=== PATIENT | male | born 1975 | race Caucasian/White ===

== ENCOUNTER 2021-04-10 10:56 | Inpatient (IN) | payer BC ==
--- NOTE | 2021-04-10 11:00 | EDM.PDOC ---
ED HPI GENERAL MEDICAL PROBLEM - General Chief Complaint: Cardiovascular Problem Stated Complaint: [id number] FROM CLINIC Time Seen by Provider: 04/10/21 10:59 Source of Information: Reports: Patient, Provider (Dr. Olson), RN, RN Notes Reviewed History Limitations: Reports: No Limitations - History of Present Illness INITIAL COMMENTS - FREE TEXT/NARRATIVE: Pt sent from [facility] by Dr. Olson where he presented as a new patient with c/o onset of sharp right sided chest pain yesterday afternoon (04/09/21) while mowing his lawn. Since the onset of chest pain the pt reports constant mild shortness of breath. Today the pain began to ache into RUQ abdomen as well. He states the he "does not feel right in general". Denies fever, chills, cough, wheezing, leg/calf pain, syncope, lightheadedness, or recent injury. Denies Hx of CAD/CT, DVT/PE, or recent illness. Onset: Gradual Onset Date: 04/09/21 Duration: Constant, Getting Worse Location: Reports: Chest, Generalized Quality: Reports: Ache, Pressure, Sharp Severity: Moderate Improves with: Reports: None Worsens with: Reports: Other (Activity) right upper quadrant Pain Score (Numeric/FACES): 3 - Related Data Allergies Allergy/AdvReac Type Severity Reaction Status Date / Time No Known Allergies Allergy Verified 04/10/21 11:16 Home Meds: Home Meds Escitalopram Oxalate [Lexapro] 20 mg PO DAILY 04/10/21 [History] Multivitamin/Iron/Folic Acid [Centrum Adults Tablet] 1 tab PO DAILY 04/10/21 [History] metFORMIN [Glucophage] 500 mg PO BIDMEALS 04/10/21 [History] Past Medical History Gastrointestinal History: Reports: GERD Endocrine/Metabolic History: Reports: Diabetes, Type II, Obesity/BMI 30+ Social & Family History - Family History Family Medical History: No Pertinent Family History - Tobacco Use Tobacco Use Status *Q: Never Tobacco User - Recreational Drug Use Recreational Drug Use: Yes Drug Use in Last 12 Months: Yes Recreational Drug Type: Reports: Marijuana/Hashish Recreational Drug Use Frequency: Daily - Living Situation & Occupation Occupation: Employed ED ROS GENERAL - Review of Systems Review Of Systems: Comprehensive ROS is negative, except as noted in HPI. ED EXAM, GENERAL - Physical Exam Exam: See Below Exam Limited By: No Limitations General Appearance: Alert, WD/WN, No Apparent Distress, Obese Eye Exam: Bilateral Eye: EOMI, Normal Inspection, PERRL Ears: Normal External Exam, Normal Canal, Hearing Grossly Normal, Normal TMs Nose: Normal Inspection, Normal Mucosa, No Blood Throat/Mouth: Normal Inspection, Normal Lips, Normal Teeth, Normal Gums, Normal Oropharynx, Normal Voice, No Airway Compromise Head: Atraumatic, Normocephalic Neck: Normal Inspection, Supple, Non-Tender, Full Range of Motion Respiratory/Chest: No Respiratory Distress, Lungs Clear, Normal Breath Sounds, No Accessory Muscle Use, Chest Non-Tender Cardiovascular: Normal Peripheral Pulses, Regular Rate, Rhythm, No Edema, No Gallop, No JVD, No Murmur, No Rub Peripheral Pulses: 1+: Radial (L), Radial (R) GI/Abdominal: Normal Bowel Sounds, Soft, Tender (RUQ), Other (positive murphys sign). No: Guarding, Rigid, Rebound (Male) Exam: Deferred Rectal (Males) Exam: Deferred Back Exam: Normal Inspection, Full Range of Motion. No: CVA Tenderness (L), CVA Tenderness (R), Vertebral Tenderness Extremities: Normal Inspection, Normal Range of Motion, Non-Tender, No Pedal Edema, Normal Capillary Refill. No: Joint Swelling, Arm Pain, Karen's Sign, Leg Pain, Increased Warmth, Redness Neurological: Alert, Oriented, CN II-XII Intact, Normal Cognition, Normal Gait, No Motor/Sensory Deficits Psychiatric: Normal Affect, Normal Mood Skin Exam: Warm, Dry, Intact, Normal Color, No Rash Lymphatic: No Adenopathy #1 Interpretation EKG Date: 04/10/21 Time: 11:07 Rhythm: NSR [place]: Normal P-Wave: Present QRS: Normal ST-T: Normal QT: Normal Comparison: NA - No Prior EKG EKG Interpretation Comments: Sinus rhythm rate of 98, normal axis, normal r wave progression, no ectopy or st changes. Course - Vital Signs Last Recorded V/S: Last Vital Signs Temp 99.0 F 04/10/21 11:09 Pulse 95 04/10/21 11:09 Resp 20 04/10/21 11:09 BP 133/83 04/10/21 11:09 Pulse Ox 99 04/10/21 11:09 - Orders/Labs/Meds Orders: Active Orders 24 hr Category Date Time Status Admission Diagnosis [ADT] Routine ADT 04/10/21 13:21 Ordered Patient Status [ADT] Routine ADT 04/10/21 13:21 Active EKG 12 Lead [EKG Documentation Completion] [RC] STAT Care 04/10/21 11:00 Active Peripheral IV Care [RC] . DIRECTED Care 04/10/21 11:01 Active CORONAVIRUS COVID-19 WAYNE [MOLEC] Stat Lab 04/10/21 13:19 Received Heparin Sodium/0.45% NaCl [Heparin 25,000 Units in 1/2 Med 04/10/21 13:15 Active NS 500 ML] 25,000 units in 500 ml IV TITRATE Sodium Chloride 0.9% [Saline Flush] Med 04/10/21 11:01 Active 10 ml FLUSH ASDIRECTED PRN Peripheral IV Insertion Adult [OM.PC] Stat Oth 04/10/21 11:00 Ordered Medication Orders Heparin Sodium/Sodium Chloride (Heparin 25,000 Units In 1/2 Ns 500 Ml) 25,000 units in 500 mls @ 26 mls/hr IV TITRATE MARCELL; Protocol Sodium Chloride (Sodium Chloride 0.9% 10 Ml Syringe) 10 ml FLUSH ASDIRECTED PRN PRN Reason: Keep Vein Open Last Admin: 04/10/21 11:05 Dose: 10 ml Documented by: SHANDA Labs: Laboratory Tests 04/10/21 04/10/21 04/10/21 Range/Units 11:00 11:05 11:05 WBC 13.5 H (5.0-10.0) 10^3/uL RBC 5.02 (4.6-6.2) 10^6/uL Hgb 15.5 (14.0-18.0) g/dL Hct 44.9 (40.0-54.0) % MCV 89.4 (80-100) fL MCH 30.9 (27.0-34.0) pg MCHC 34.5 (33.0-35.0) g/dL Plt Count 208 (150-450) 10^3/uL Neut % (Auto) 75.9 H (42.2-75.2) % Lymph % (Auto) 13.6 L (20.5-50.1) % Cabell % (Auto) 9.6 H (2-8) % Eos % (Auto) 0.6 L (1.0-3.0) % Baso % (Auto) 0.3 (0.0-1.0) % PT 10.7 (9.0-12.0) SEC INR 1.1 (0.9-1.2) APTT 26.5 (22.0-34.0) SEC D-Dimer, Quantitative 2990 H (0-400) ng/mL Sodium 139 (136-145) mmol/L Potassium 3.7 (3.5-5.1) mmol/L Chloride 102 (98-107) mmol/L Carbon Dioxide 28 (21-32) mmol/L Anion Gap 12.7 (7-13) mEq/L BUN 14 (7-18) mg/dL Creatinine 1.07 (0.70-1.30) mg/dL Est Cr Clr Drug Dosing 89.07 mL/min Estimated GFR (MDRD) > 60 BUN/Creatinine Ratio 13.1 (No establ ref range) Glucose 109 H (70-99) mg/dL Calcium 8.7 (8.5-10.1) mg/dL Magnesium 2.2 (1.8-2.4) mg/dL Total Bilirubin 1.2 H (0.2-1.0) mg/dL AST 12 L (15-37) U/L ALT 31 (16-63) U/L Alkaline Phosphatase 70 (46-116) U/L Troponin I High Sens 4 (<=76) pg/mL B-Natriuretic Peptide 8 (0-100) pg/ml Total Protein 7.6 (6.4-8.2) g/dL Albumin 3.8 (3.4-5.0) g/dL Globulin 3.8 Albumin/Globulin Ratio 1.0 TSH, Ultra Sensitive 2.29 (0.36-3.74) uIU/mL Meds: Medications Generic Name Dose Route Start Last Admin Trade Name Freq PRN Reason Stop Dose Admin Heparin Sodium/Sodium Chloride 25,000 units in 500 mls @ 26 mls/hr 04/10/21 13:15 Heparin 25,000 Units In 1/2 Ns 500 Ml IV TITRATE MARCELL Protocol Sodium Chloride 10 ml 04/10/21 11:01 04/10/21 11:05 Sodium Chloride 0.9% 10 Ml Syringe FLUSH 10 ml ASDIRECTED PRN Administration Keep Vein Open Discontinued Medications Generic Name Dose Route Start Last Admin Trade Name Elmer PRN Reason Stop Dose Admin Aspirin 324 mg 04/10/21 11:02 04/10/21 11:43 Aspirin 81 Mg Tab.Chew PO 04/10/21 11:03 324 mg ONETIME ONE Administration Heparin Sodium (Porcine) 5,000 units 04/10/21 13:13 Heparin Sodium 5,000 Units/Ml Vial IVPUSH 04/10/21 13:14 .BOLUS ONE Protocol Iopamidol 100 ml 04/10/21 12:05 04/10/21 12:29 Iopamidol 755 Mg/Ml 100 Ml Bottle IVPUSH 04/10/21 12:06 83 ml ONETIME ONE Administration - Radiology Interpretation Free Text/Narrative:: [facility] Final Radiology Report Call: [phone] assistance Online chat: [email or web address] Name: ALKA ALFONSO Age: 45Years M Date: 04/10/2021 SSN: -- : [id number] Study: CT CHEST W CONT Requesting Physician: TORI WATKINS Images: [id number] Addl Studies: Provided Clinical History: Rt chest pain, short of breath D-dimer 2990 Contrast: With Contrast Medium: Isovue 370 Contrast Amount: 83 mL Contrast Method: Intravenous (IV) Page 1 of 2 PROCEDURE INFORMATION: Exam: CT Chest With Contrast; Diagnostic Exam date and time: 04/10/2021 12:22 PM Age: 45 years old Clinical indication: Shortness of breath; Additional info: RT chest pain, short of breath d-dimer 2990 TECHNIQUE: Imaging protocol: Diagnostic computed tomography of the chest with contrast. Radiation optimization: All CT scans at this facility use at least one of these dose optimization techniques: automated exposure control; mA and/or kV adjustment per patient size (includes targeted exams where dose is matched to clinical indication); or iterative reconstruction. Contrast material: ISOVUE 370; Contrast volume: 83 ml; Contrast route: INTRAVENOUS (IV); COMPARISON: No relevant prior studies available. FINDINGS: Limitations: None. Trachea: Normal. Bronchial tree: Normal. Lungs: Bilateral lower lobe peribronchial thickening is mild to the left and [id number] to the right. Ground-glass opacification across the left lung base, some of it likely attributable to atelectasis but the extent and nature of the opacification also suggests other superimposed disease. Incidentally noted calcified right upper lobe micro-granuloma, not concerning. Pleural spaces: Small right pleural effusion. Heart: The heart has normal dimensions and there is no pericardial effusion. The RV to LV ratio is about 0.83. Coronary arteries: Normal. ALKA ALFONSO | Final Radiology Report CONFIDENTIALITY STATEMENT This report is intended only for use by the referring physician, and only in accordance with law. If you received this in error, call [phone]. Page 2 of 2 Pulmonary arteries: There are filling defects within multiple pulmonary arteries. To the left these include nonocclusive filling defects at the origins of lobar branches to the lingula, within the common lower lobe branch and with saddle emboli extending into segmental branches, similar to that seen to the right where there is nonocclusive defect at the interlobar artery division to middle lobe and lower lobe arteries, also with smaller defects extending into segmental branches. A right lower lobe subsegmental branch appears completely occluded. Aorta: Normal. Lymph nodes: There are a few enlarged right paratracheal lymph nodes that measure up to 0.8 cm. No enlarged axillary or hilar lymph nodes. Stomach and bowel: Small gastric hiatal hernia. Bones/joints: No acute fracture or suspicious osseous lesion. Soft tissues: Normal. IMPRESSION: 1. Multiple bilateral pulmonary emboli. No evidence of right heart strain. The clot burden is at least moderate given its diffuse distribution and there is likely a sub segmental infarct in the posterior right lung base. 2. Findings in the right lower lung including the small pleural effusion and ground-glass opacification may be related to lung infarct, and or, superimposed infection given the presence of right greater than left peribronchial thickening and enlarged mediastinal lymph nodes. Follow-up of the enlarged lymph nodes is recommended after treatment and when well. THIS REPORT CONTAINS FINDINGS THAT MAY BE CRITICAL TO PATIENT CARE. The findings were verbally communicated via telephone conference with TORI WATKINS at 1:05 PM CDT on 04/10/2021. The findings were acknowledged and understood. Thank you for allowing us to participate in the care of your patient. Dictated and Authenticated by: Ryan Villareal MD 04/10/2021 1:08 PM Central Time ([place] & [place]) Departure - Departure Time of Disposition: 13:39 (admitted to Dr. Marcos) Disposition: Admitted As Inpatient 65 Condition: Fair, Serious Clinical Impression: Bilateral pulmonary embolism Forms: ED Department Discharge Sepsis Event Note (ED) - Focused Exam Vital Signs: Vital Signs Temp Pulse Resp BP Pulse Ox 04/10/21 11:09 99.0 F 95 20 133/83 99 - My Orders Last 24 Hours: My Active Orders 04/10/21 11:00 EKG 12 Lead [EKG Documentation Completion] [RC] STAT Peripheral IV Insertion Adult [OM.PC] Stat 04/10/21 11:01 Peripheral IV Care [RC] . DIRECTED Sodium Chloride 0.9% [Saline Flush] 10 ml FLUSH ASDIRECTED PRN 04/10/21 13:15 Heparin Sodium/0.45% NaCl [Heparin 25,000 Units in 1/2 NS 500 ML] 25,000 units in 500 ml IV TITRATE 04/10/21 13:19 CORONAVIRUS COVID-19 WAYNE [MOLEC] Stat 04/10/21 13:21 Admission Diagnosis [ADT] Routine Patient Status [ADT] Routine - Assessment/Plan Last 24 Hours: My Active Orders 04/10/21 11:00 EKG 12 Lead [EKG Documentation Completion] [RC] STAT Peripheral IV Insertion Adult [OM.PC] Stat 04/10/21 11:01 Peripheral IV Care [RC] . DIRECTED Sodium Chloride 0.9% [Saline Flush] 10 ml FLUSH ASDIRECTED PRN 04/10/21 13:15 Heparin Sodium/0.45% NaCl [Heparin 25,000 Units in 1/2 NS 500 ML] 25,000 units in 500 ml IV TITRATE 04/10/21 13:19 CORONAVIRUS COVID-19 WAYNE [MOLEC] Stat 04/10/21 13:21 Admission Diagnosis [ADT] Routine Patient Status [ADT] Routine
[2021-04-10] MEDS ORDERED: Aspirin 81 MG Tab.Chew PO ONE (11:02)
[2021-04-10] MEDS: Sodium Chloride 0.9% 10 ML Syringe FLUSH PRN ×4 (11:05→22:32)
[2021-04-10 11:34] LABS: PTT,PARTIAL THROMBOPLSTIN TIME 26.5 SEC (22.0-34.0)
[2021-04-10 11:41] LABS: ANION GAP 12.7 mEq/L (7-13); CHLORIDE,CL 102 mmol/L (98-107); SODIUM,NA 139 mmol/L (136-145)
[2021-04-10] MEDS ORDERED: Iopamidol 755 Mg/ML 100 ML Bottle IVPUSH ONE (12:05)
--- NOTE | 2021-04-10 13:08 | CT ---
PROCEDURE INFORMATION: Exam: CT Chest With Contrast; Diagnostic Exam date and time: 04/10/2021 12:22 PM Age: 45 years old Clinical indication: Shortness of breath; Additional info: RT chest pain, short of breath d-dimer 2990 TECHNIQUE: Imaging protocol: Diagnostic computed tomography of the chest with contrast. Radiation optimization: All CT scans at this facility use at least one of these dose optimization techniques: automated exposure control; mA and/or kV adjustment per patient size (includes targeted exams where dose is matched to clinical indication); or iterative reconstruction. Contrast material: ISOVUE 370; Contrast volume: 83 ml; Contrast route: INTRAVENOUS (IV); COMPARISON: No relevant prior studies available. FINDINGS: Limitations: None. Trachea: Normal. Bronchial tree: Normal. Lungs: Bilateral lower lobe peribronchial thickening is mild to the left and [id number] to the right. Ground-glass opacification across the left lung base, some of it likely attributable to atelectasis but the extent and nature of the opacification also suggests other superimposed disease. Incidentally noted calcified right upper lobe micro-granuloma, not concerning. Pleural spaces: Small right pleural effusion. Heart: The heart has normal dimensions and there is no pericardial effusion. The RV to LV ratio is about 0.83. Coronary arteries: Normal. Pulmonary arteries: There are filling defects within multiple pulmonary arteries. To the left these include nonocclusive filling defects at the origins of lobar branches to the lingula, within the common lower lobe branch and with saddle emboli extending into segmental branches, similar to that seen to the right where there is nonocclusive defect at the interlobar artery division to middle lobe and lower lobe arteries, also with smaller defects extending into segmental branches. A right lower lobe subsegmental branch appears completely occluded. Aorta: Normal. Lymph nodes: There are a few enlarged right paratracheal lymph nodes that measure up to 0.8 cm. No enlarged axillary or hilar lymph nodes. Stomach and bowel: Small gastric hiatal hernia. Bones/joints: No acute fracture or suspicious osseous lesion. Soft tissues: Normal. IMPRESSION: 1. Multiple bilateral pulmonary emboli. No evidence of right heart strain. The clot burden is at least moderate given its diffuse distribution and there is likely a sub segmental infarct in the posterior right lung base. 2. Findings in the right lower lung including the small pleural effusion and ground-glass opacification may be related to lung infarct, and or, superimposed infection given the presence of right greater than left peribronchial thickening and enlarged mediastinal lymph nodes. Follow-up of the enlarged lymph nodes is recommended after treatment and when well. THIS REPORT CONTAINS FINDINGS THAT MAY BE CRITICAL TO PATIENT CARE. The findings were verbally communicated via telephone conference with TORI WATKINS at 1:05 PM CDT on 04/10/2021. The findings were acknowledged and understood.
[2021-04-10] MEDS ORDERED: Heparin Sodium 5,000 Units/ML Vial IVPUSH ONE ×3 (13:13→21:05)
[2021-04-10] MEDS: Heparin Sodium/0.45% NaCl 25,000 UNITS/500 ML BAG IV SCH (13:45)
[2021-04-10] MEDS ORDERED: Acetaminophen 325 MG Tab PO PRN (14:06)
[2021-04-10] MEDS ORDERED: Ondansetron 4 MG/2 ML SDV IVPUSH PRN (14:06)
[2021-04-10] MEDS ORDERED: 50% Dextrose in Water 50 ML Syringe IVPUSH PRN (14:10)
[2021-04-10] MEDS ORDERED: Glucagon,Human Recombinant 1 MG Vial IM PRN (14:10)
--- NOTE | 2021-04-10 14:19 | PCM.SN.2 ---
- Free Text/Narrative Note: START OF DOCTOR FRANCES HISTORY AND PHYSICAL / CONSULTATION NOTE Chief Complaint: "I was sent to the emergency department because of suspected blood clot" History of Present Illness: The patient is a 45 old male who directed to the emergency department by a physician with the suspicion for venous thrombosis. The patient states he started feeling unwell on April 09, 2021 after mowing his lawn with a push mower. He noted dyspnea on exertion which was normal for him. HE SUBSEQUENTLY DEVELOPED PROGRESSIVE DYSPNEA AT REST. THE PATIENT DENIES FEVER, RIGORS, NAUSEA, VOMITING, COUGH, WHEEZE, ABDOMINAL PAIN, DIARRHEA, MYALGIA, CHEST PAIN, LIGHTHEADEDNESS, DIZZINESS, DIAPHORESIS, PALPITATIONS, SINCE HIS RAPID HEART BEAT, SENSATION OF AN IRREGULAR HEARTBEAT. HE COMPLAINS OF MILD RIGHT UPPER QUADRANT DISCOMFORT. HE DENIES PERIPHERAL EDEMA. HE DENIES DYSGEUSIA AND HE DENIES ANOSMIA. PATIENT HAS A 7-PACK-YEAR HISTORY OF SMOKING WHICH IS REMOTE. HE DENIES ANY RECENT LONG TRAVELS. HE DENIES HEMATOCHEZIA, MELENA, CHANGE IN STOOL CALIBER. HE PRESENTS FOR FURTHER EVALUATION Surgical History: Tonsillectomy Family History: Cancer, coronary artery disease Social History: Tobacco: Former smoker Alcohol: The patient drinks to 7 beers nightly but denies a history of alcohol withdrawal Caffeine: Coffee Drugs: Presently uses marijuana. Denies any other drug use past or present Allergies: No known drug allergies Code Status: Full Pertinent Laboratory Results / Pertinent Radiology Results / Pertinent Diagnostic Results / Pertinent Vital Signs: Blood pressure 133/83, pulse 95, respiration 20, 190 degrees, 90% room air, bilirubin is 1.2, D-dimer 2990, white blood count 13.5 Physical Examination: General: -Alert -No acute distress -No dyspnea -No tachypnea -Obese Head: -Atraumatic -Normocephalic Eyes: -Pupils equally round and reactive to light and accommodation -Extraocular muscles intact Neurological: -Cranial nerves II-XII intact Neck: -No jugular venous distention -No thyromegaly -No cervical lymphadenopathy Heart: -Regular rate -Regular rhythm -No murmurs -No gallops -No rubs Lungs: -No wheeze -No rhonchi -No rales Abdomen: -Normal bowel sounds in all four quadrants -No rebound -No guarding -No tenderness Extremities: -2/4 pulse in all four extremities -No clubbing -No cyanosis -No edema -No calf tenderness present bilaterally -Negative Homans sign bilaterally Musculoskeletal: -5/5 bilateral upper extremity strength -5/5 bilateral lower extremity strength -Sensorium of bilateral upper extremities are equal and intact -Sensorium of bilateral lower extremities are equal and intact Additional Details / Additional Findings / Exceptions / Miscellaneous: Assessment / Plan: Pulmonary embolism. Will monitor patient telemetry and check saccadic enzymes. Check protein C activity, protein S activity, factor V Leiden, anticardiolipin antibody. IV heparin drip per protocol. Upon discharge patient will require CT abdomen pelvis with IV contrast as well as colonoscopy to rule out any malignancy especially since he is of age of screening Mediastinal lymphadenopathy. This may be sequelae of questionable pneumonia. CT chest with IV contrast 2 months post discharge to ensure resolution Depression Query pneumonia. Azithromycin 500 mg IV daily plus Rocephin 1 g IV daily Marijuana abuse. Patient will be counseled regarding marijuana cessation Hyperbilirubinemia. Will monitor bilirubin levels intermittently Diabetes. Will check fasting glucose before every meal and at bedtime and provide insulin sliding scale Obesity. Patient counseled regarding lifestyle modification Alcohol overuse/abuse. Patient denies history of withdrawal DVT prophylaxis. IV heparin drip per protocol Disposition: Anticipate discharge within 24 hours END OF DOCTOR EMAMIS HISTORY AND PHYSICAL / CONSULTATION NOTE
[2021-04-10] MEDS ORDERED: Azithromycin 500 MG in Sodium Chloride 0.9% 250 ML IV SCH (15:00)
[2021-04-10] MEDS ORDERED: cefTRIAXone 1 GM in Sodium Chloride 0.9% 50 ML IV SCH (16:00)
[2021-04-10] MEDS: Insulin Lispro 100 Units/ML 3 ML Vial SUBCUT SCH ×2 (17:05→21:28)
[2021-04-10] MEDS: Morphine 2 MG/ML SYRINGE IVPUSH PRN ×2 (18:39→22:31)
[2021-04-11] MEDS: Morphine 2 MG/ML SYRINGE IVPUSH PRN ×3 (01:04→09:29)
[2021-04-11] MEDS: Sodium Chloride 0.9% 10 ML Syringe FLUSH PRN ×2 (01:04→05:05)
[2021-04-11] MEDS ORDERED: Heparin Sodium 5,000 Units/ML Vial IVPUSH ONE (04:17)
[2021-04-11] MEDS: Heparin Sodium/0.45% NaCl 25,000 UNITS/500 ML BAG IV SCH (07:42)
--- NOTE | 2021-04-11 07:44 | PCM.SN.2 ---
- Free Text/Narrative Note: START OF DOCTOR EMAMIS DISCHARGE SUMMARY Date of Admission: April 10, 2021 Date of Discharge: 7:41 AM on April 11, 2021 Primary Diagnosis: Pulmonary embolism Secondary Diagnosis: Mediastinal lymphadenopathy, this may potentially be a sequelae of questionable pneumonia Query pneumonia Depression Marijuana abuse Hyperbilirubinemia Diabetes Obesity Alcohol overuse/abuse Anemia Obstructive sleep apnea Consultations: None Condition on Discharge: Fair Disposition: The patient will be vies to follow-up with hematology/oncology 7 to 14 days post discharge for diagnosis of pulmonary embolism The patient is advised follow-up with gastroenterology 2 to 4 weeks post discharge for evaluation for age-appropriate screening colonoscopy, especially given his recent diagnosis of pulmonary embolism (rule out malignancy ( The patient will require check of CT chest abdomen and pelvis with IV contrast 2 months post discharge for diagnosis of mediastinal lymphadenopathy as well as pulmonary embolism (rule out malignancy ( Discharge Medications: Lisinopril 5 mg p.o. daily: This is being prescribed for nephro protection by virtue of his diabetes and is not being prescribed for hypertension Doxycycline 100 mg p.o. twice daily. Quantity 12. 0 refills Muddy 5/325 mg p.o. every 6 hours as needed pain. Quantity 10. 0 refills Metformin 500 mg p.o. twice daily Lexapro 20 mg p.o. daily Multivitamin 1 tab p.o. daily Eliquis 5 mg p.o.: 2 tabs p.o. twice daily for 7 days then 1 tab p.o. twice daily indefinitely thereafter until discontinuation. Quantity sufficient for 1 month. 0 refills END OF DOCTOR EMAMIS DISCHARGE SUMMARY
[2021-04-11] MEDS ORDERED: Apixaban 5 MG Tab PO ONE (08:00)
[2021-04-11] MEDS ORDERED: metFORMIN 500 MG Tab PO SCH (08:00)
[2021-04-11] MEDS ORDERED: Escitalopram 10 MG Tab PO SCH (09:00)
[2021-04-11] MEDS: Insulin Lispro 100 Units/ML 3 ML Vial SUBCUT SCH ×2 (09:28→12:46)
== END 2021-04-11 13:02 | disposition home or self-care (01) | DRG 134 ==
LOC: DL.ED 10:56 → DL.MS 13:21
PROVIDERS: ADMIT Internal Medicine; ATTEND Internal Medicine
DX: I26.99 Other pulmonary embolism without acute cor pulmonale (principal); R59.1 Generalized enlarged lymph nodes; F32.9 Major depressive disorder, single episode, unspecified; F12.10 Cannabis abuse, uncomplicated; E80.6 Other disorders of bilirubin metabolism; E11.9 Type 2 diabetes mellitus without complications; E66.9 Obesity, unspecified; D64.9 Anemia, unspecified; G47.33 Obstructive sleep apnea (adult) (pediatric); Z90.89 Acquired absence of other organs; Z87.891 Personal history of nicotine dependence; Z79.899 Other long term (current) drug therapy; K21.9 Gastro-esophageal reflux disease without esophagitis; Z20.822 Contact with and (suspected) exposure to COVID-19; Z68.43 Body mass index [BMI] 50.0-59.9, adult
CPT/HCPCS: 36415; 71260; 80053; 81241; 82728; 82947; 83540; 83550; 83735; 83880; 84443; 84484; 85025; 85302; 85303; 85306; 85379; 85610; 85730; 86147; 93005; 99285-25; A9270-GY; J0456; J0696; J1644; J2270; J7050; Q9967; U0002

== ENCOUNTER 2021-08-09 05:28 | Day surgery (SDC) | payer BC ==
[2021-08-09] MEDS ORDERED: Midazolam 1 MG/ML 2 ML SDV IV ONE ×6 (05:29→06:50)
[2021-08-09] MEDS ORDERED: fentaNYL 100 MCG/2 ML SDV IV ONE ×3 (05:29→06:41)
[2021-08-09] MEDS ORDERED: fentaNYL 100 MCG/2 ML SDV ONE (05:38)
[2021-08-09] MEDS ORDERED: Midazolam 1 MG/ML 2 ML SDV ONE (05:38)
[2021-08-09] MEDS ORDERED: Dextrose 5%-0.45% NaCl 1,000 ML IV SCH (06:00)
[2021-08-09] MEDS ORDERED: Sodium Chloride 0.9% 10 ML Syringe FLUSH PRN (06:00)
--- NOTE | 2021-08-09 07:33 | OR ---
DATE: 08/09/2021 PROCEDURE: Total colonoscopy. INSTRUMENT USED: [id number] Olympus video colonoscope. PREMEDICATIONS: Fentanyl 100 mcg intravenous, Versed 3.5 mg intravenous, nasal O2 cannula. The procedure was done under pulse oximetry, BP recording, and monitor technician. INDICATION: Screening colonoscopic examination is done for detection of any polypoid lesions and removal, endoscopic hemostasis therapy if needed. DESCRIPTION OF PROCEDURE: Initial rectal exam was unremarkable. Rigid anoscopy showed small internal hemorrhoids without bleeding from them. The colonoscope was passed with ease up to the ileocecal area. Photographs were taken of the normal-appearing cecum identified by landmarks of appendiceal orifice and double bulged ileocecal folds. No bleeding was noted from any of the visualized areas at the commencement of the examination. The bowel preparation was found to be adequate, [place] scale 3 in all the areas. Total score 9. No stricture. No vascular ectasia. No large isolated ulcerations seen. No evidence of diffuse inflammatory bowel disease in the form of friability, contact bleeding, or ulcerations. No polyp or tumor mass identified. Second-look of the right colon made and no polypoid lesions noted. Probing the proximal sides of folds and flexures using adequate distention and clearing up the stool material, withdrawal of the scope was made, cecum to rectum time over 6 minutes. No bleeding was noted from any of the visualized areas at the completion of examination. IMPRESSION: Internal hemorrhoids. The patient tolerated the procedure well. [facility] /[id number]
== END 2021-08-09 09:00 | disposition home or self-care (01) ==
LOC: DL.ENDO 05:28
PROVIDERS: ATTEND Internal Medicine Gastroenterology
DX: Z12.11 Encounter for screening for malignant neoplasm of colon (principal); K64.8 Other hemorrhoids; E66.01 Morbid (severe) obesity due to excess calories; I10 Essential (primary) hypertension; E11.9 Type 2 diabetes mellitus without complications; Z79.01 Long term (current) use of anticoagulants; Z68.43 Body mass index [BMI] 50.0-59.9, adult
CPT/HCPCS: J2250; J3010; J7042

== ENCOUNTER 2023-04-22 10:54 | Emergency (ER) | payer BC ==
[2023-04-22] MEDS ORDERED: Sodium Chloride 0.9% 10 ML Syringe FLUSH PRN (11:23)
[2023-04-22] MEDS ORDERED: Ketorolac 30 MG/ML SDV IVPUSH ONE (11:25)
[2023-04-22] MEDS ORDERED: Piperacillin/Tazobactam 3.375 GM in Sodium Chloride 0.9% 100 ML IV ONE (11:28)
[2023-04-22] MEDS ORDERED: Dexamethasone 4 MG/ML SDV IVPUSH ONE (11:33)
[2023-04-22 11:34] LABS: BASOPHILS PERCENT AUTO 0.4 % (0.0-1.0); EOSINOPHILS PERCENT AUTO 1.9 % (1.0-3.0); HEMATOCRIT 41.6 % (40.0-54.0); HEMOGLOBIN 14.2 g/dL (14.0-18.0); LYMPHOCYTES PERCENT AUTO 17.2 % (20.5-50.1); MEAN CORPUSCULAR HGB CONC 34.1 g/dL (33.0-35.0); MEAN CORPUSCULAR VOLUME 90.8 fL (80-100); MONOCYTES PERCENT AUTO 9.7 % (2-8); NEUTROPHILS PERCENT AUTO 70.8 % (42.2-75.2); PLATELET COUNT,PLT 229 10^3/uL (150-450); RED BLOOD CELL COUNT 4.58 10^6/uL (4.6-6.2); WHITE BLOOD CELL COUNT,WBC 10.5 10^3/uL (5.0-10.0)
[2023-04-22 11:48] LABS: ANION GAP 13.8 mEq/L (7-13); CREATININE 0.97 mg/dL (0.70-1.30); EST CRCL DRUG DOSING (CG) 96.16 mL/min; POTASSIUM,K 3.8 mmol/L (3.5-5.1)
[2023-04-22] MEDS ORDERED: Iopamidol 612 MG/ML 100 ML Bottle IVPUSH ONE (12:00)
== END 2023-04-22 12:40 | disposition home or self-care (01) ==
LOC: DL.ED 10:54
DX: L03.213 Periorbital cellulitis (principal); E11.9 Type 2 diabetes mellitus without complications; E78.00 Pure hypercholesterolemia, unspecified; K21.9 Gastro-esophageal reflux disease without esophagitis; E66.9 Obesity, unspecified; Z79.01 Long term (current) use of anticoagulants; Z79.899 Other long term (current) drug therapy; Z79.84 Long term (current) use of oral hypoglycemic drugs; Z68.43 Body mass index [BMI] 50.0-59.9, adult
CPT/HCPCS: 36415; 70487; 80048; 85025; 96365; 96375; 99284; J1100; J1885; J2543; J3490; Q9967